=== PATIENT | male | born 1995 | race Caucasian/White ===

== ENCOUNTER 2023-05-26 19:46 | Emergency (ER) | payer OTHER ==
[~2023-05-26] VITALS: Ht 170.2 cm; Wt 62.5 kg
[2023-05-26 21:04] LABS: BASO # 0.1 10^3/uL (0.0-0.2); BASO % 0.9 % (0.0-1.0); EOS # 0.1 10^3/uL (0.0-0.5); EOS % 0.9 % (0.0-3.0); HEMATOCRIT 42.1 % (42.0-52.0); HEMOGLOBIN 14.3 g/dl (13.5-17.5); LYMPH # 2.6 10^3/uL (1.5-5.0); LYMPH % 39.2 % (24.0-44.0); MEAN CORPUSCULAR HEMOGLOBIN 31.2 pg (27.0-33.0); MEAN CORPUSCULAR VOLUME 91.7 fl (80.0-96.0); MONO # 0.6 10^3/uL (0.0-0.8); MONO % 8.3 % (2.0-8.0); NEUTROPHILS # 3.4 10^3/uL (1.5-8.5); NEUTROPHILS % 50.5 % (36.0-66.0); PLATELET COUNT, AUTOMATED 268 10^3/uL (150-450); RED BLOOD COUNT 4.59 10^6/uL (4.30-6.10); WHITE BLOOD COUNT 6.7 10^3/uL (4.0-10.0)
[2023-05-26 21:50] LABS: CK-MB VALUE MASS 1.2 NG/ML (<3.6)
[2023-05-26 21:52] LABS: ALBUMIN 4.3 G/DL (3.2-5.2); ALKALINE PHOSPHATASE 42 U/L (46-116); ALT/SGPT 37 U/L (7.0-40); AST/SGOT 20 U/L (<34); BILIRUBIN,DIRECT 0.2 MG/DL (<0.4); BILIRUBIN,TOTAL 0.7 MG/DL (0.3-1.2); BLOOD UREA NITROGEN 14 MG/DL (9-23); CALCIUM LEVEL 9.9 MG/DL (8.5-10.1); CARBON DIOXIDE LEVEL 33 MMOL/L (20-31); CHLORIDE LEVEL 104 MMOL/L (98-107); CPK CREATINE PHOSPHOKINASE 154 U/L (46-171); CREATININE FOR GFR 1.09 MG/DL (0.70-1.30); GLOMERULAR FILTRATION RATE > 60.0 (>60); GLUCOSE, FASTING 60 MG/DL (60-100); MB/CK RELATIVE INDEX 0.77 (< OR =4); SODIUM LEVEL 143 MMOL/L (136-145); TOTAL PROTEIN 7.4 G/DL (5.7-8.2)
[2023-05-27 00:19] LABS: CK-MB VALUE MASS 1.1 NG/ML (<3.6)
[2023-05-27 00:20] LABS: MB/CK RELATIVE INDEX 0.7 (< OR =4)
[2023-05-27] MEDS ORDERED: KETOROLAC 30 MG/ML 1ML VIAL IV ONE (00:55)
[2023-05-27] MEDS ORDERED: IBUP-1022 PO (01:18)
[2023-05-27] MEDS ORDERED: methocarbamoL 500 MG TAB PO ONE (01:45)
[2023-05-27] MEDS ORDERED: FAMOTIDINE 20MG/2ML VIAL IVP ONE (01:45)
[2023-05-27 03:40] VITALS: BP 115/60; TEMP 98; O2SAT 99
== END 2023-05-27 03:42 | disposition home or self-care (01) ==
LOC: M ED 19:46
DX: R07.9 Chest pain, unspecified (principal); R00.1 Bradycardia, unspecified; I45.19 Other right bundle-branch block; Z87.891 Personal history of nicotine dependence
CPT/HCPCS: 71046; 80048; 80076; 82550; 82553; 84484; 85025; 93005; 93041; 94760; 96374; 96375; 99284; J1885; S0028

== ENCOUNTER 2024-04-03 00:12 | Emergency (ER) | payer OTHER ==
[~2024-04-03] VITALS: Ht 170.2 cm; Wt 67.3 kg
[~2024-04-03 00:12] MED LIST: IBUP-1022 PO
[2024-04-03 00:54] LABS: BASO # 0.1 10^3/uL (0.0-0.2); BASO % 0.9 % (0.0-1.0); EOS # 0.2 10^3/uL (0.0-0.5); EOS % 2.9 % (0.0-3.0); HEMATOCRIT 40.6 % (42.0-52.0); HEMOGLOBIN 13.7 g/dl (13.5-17.5); LYMPH % 46.8 % (24.0-44.0); MEAN CORPUSCULAR HGB CONC 33.7 g/dl (32.0-36.5); MEAN CORPUSCULAR VOLUME 91.9 fl (80.0-96.0); MONO # 0.5 10^3/uL (0.0-0.8); MONO % 8.2 % (2.0-8.0); NEUTROPHILS # 2.7 10^3/uL (1.5-8.5); NEUTROPHILS % 40.9 % (36.0-66.0); PLATELET COUNT, AUTOMATED 248 10^3/uL (150-450); RED BLOOD COUNT 4.42 10^6/uL (4.30-6.10); WHITE BLOOD COUNT 6.5 10^3/uL (4.0-10.0)
[2024-04-03 01:17] LABS: BLOOD UREA NITROGEN 20 MG/DL (9-23); CALCIUM LEVEL 9.1 MG/DL (8.5-10.1); CARBON DIOXIDE LEVEL 30 MMOL/L (20-31); CHLORIDE LEVEL 105 MMOL/L (98-107); CK-MB VALUE MASS 1.3 NG/ML (<3.6); GLOMERULAR FILTRATION RATE > 60.0 (>60); GLUCOSE, FASTING 98 MG/DL (60-100); POTASSIUM SERUM 3.7 MMOL/L (3.5-5.1); SODIUM LEVEL 138 MMOL/L (136-145)
[2024-04-03 01:23] LABS: CPK CREATINE PHOSPHOKINASE 265 U/L (46-171); MB/CK RELATIVE INDEX 0.49 (< OR =4)
[2024-04-03 02:48] LABS: CK-MB VALUE MASS 1.3 NG/ML (<3.6)
[2024-04-03 02:49] LABS: MB/CK RELATIVE INDEX 0.49 (< OR =4)
[2024-04-03 03:48] VITALS: TEMP 97.4
[2024-04-03 05:25] VITALS: BP 112/63; O2SAT 100
[2024-04-03] MEDS ORDERED: HOLTER MONITOR XX (06:00)
== END 2024-04-03 06:11 | disposition home or self-care (01) ==
LOC: M ED 00:12
DX: R07.9 Chest pain, unspecified (principal); E86.0 Dehydration; I44.0 Atrioventricular block, first degree; I45.10 Unspecified right bundle-branch block; Z79.1 Long term (current) use of non-steroidal anti-inflammatories (NSAID)